=== PATIENT | male | born 1970 ===

== ENCOUNTER → 2018-09-25 23:06 | Outpatient (REF) | payer OTHER, SELFPAY ==
[2018-09-30 10:27] LABS: Syphilis AB Cascading Reflex NEGATIVE (Negative)
[2018-10-02 13:27] LABS: Mitogen-NIL 9.28 IU/mL; NIL 0.12 IU/mL; QuantiFERON TB NEGATIVE (Negative); TB1-NIL < 0.01 IU/mL; TB2-NIL < 0.01 IU/mL
== END ==
LOC: LAB 23:06
PROVIDERS: Visit Provider Family Medicine
DX: Z11.1 Encounter for screening for respiratory tuberculosis (principal); Z11.3 Encounter for screening for infections with a predominantly sexual mode of transmission
CPT/HCPCS: 36415; 86480; 86780; 87591